=== PATIENT | male | born 1945 | race Caucasian/White ===

== ENCOUNTER 2018-11-18 21:44 | Emergency (ER) | payer OTHER ==
[~2018-11-18] VITALS: Ht 167.6 cm; Wt 90.7 kg
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
[2018-11-18] MEDS ORDERED: Tetanus/Diptheria/Pertussis Vaccine 0.5ml Syr IM ONE (22:00)
[2018-11-18] MEDS ORDERED: Norco 5mg/325mg tab ORAL ONE (22:00)
--- NOTE | 2018-11-18 22:03 | NUR ---
ED Nurse Note: Pt down to imaging
[2018-11-18 22:05] VITALS: BP 155/94
--- NOTE | 2018-11-18 22:10 | NUR ---
ED Nurse Note: Pt back from imaging.
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
--- NOTE | 2018-11-18 22:30 | NUR ---
ED Nurse Note: ERMD at bedside suturing wound
--- NOTE | 2018-11-18 22:50 | NUR ---
ED Nurse Note: IV access established.
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
[2018-11-19] MEDS ORDERED: HYDROCODON-ACE1 EA15 ORAL (00:42)
[2018-11-19] MEDS ORDERED: IBUPROFEN600 MG ORAL (00:42)
[2018-11-19 00:45] VITALS: BP 155/94
--- NOTE | 2018-11-19 00:45 | NUR ---
ED Nurse Note: Patient cleared for discharge per ERMD. AO4 NAD. VSS. Patient given prescriptions and discharge instructions; verbalized understanding. ID band removed. Patient ambulated steady with all personal belongings.
== END 2018-11-19 00:45 | disposition home or self-care (01) ==
LOC: EDBD 21:44 → EMR 22:00
DX: S01.01XA Laceration without foreign body of scalp, initial encounter (principal); S01.111A Laceration without foreign body of right eyelid and periocular area, initial encounter; S01.21XA Laceration without foreign body of nose, initial encounter; V43.52XA Car driver injured in collision with other type car in traffic accident, initial encounter; Y92.410 Unspecified street and highway as the place of occurrence of the external cause; Z23 Encounter for immunization
CPT/HCPCS: 70450; 90471; 90715; 96360; 99284